=== PATIENT | female | born 1995 | race Two or more races ===

== ENCOUNTER 2018-01-09 20:34 | Emergency (ER) | payer MEDICAID ==
[~2018-01-09] VITALS: Ht 160 cm; Wt 49.9 kg
[2018-01-09 20:50] VITALS: BP 153/94
[2018-01-09] MEDS ORDERED: IBUPROFEN600 MG ORAL (21:06)
[2018-01-09] MEDS ORDERED: PREDNISONE20 MG ORAL (21:06)
[2018-01-09] MEDS ORDERED: PSEUDOEPHEDRINE60 MG PO (21:06)
[2018-01-09] MEDS ORDERED: ALBUTEROL SULF8.5 GM INH (21:06)
--- NOTE | 2018-01-09 21:07 | Emergency Room Report ---
History of Present Illness General Chief Complaint: Sore Throat Source: Patient Present Illness HPI This is a 22-year-old female with history of asthma. She presents with chief complaint of cough, sore throat, hoarseness of her voice. His been ongoing for 2 days. Fever initially. None now. Cough is nonproductive in nature. Worse with lying flat. Worse with inspiration. No nausea no vomiting. Dizzy with coughing. Her inhaler is not helping. She is almost out. No recent steroid use. No recent admission Allergies: Coded Allergies: HYDROMORPHONE (Verified Allergy, Unknown, 01/09/18) MORPHINE (Verified Allergy, Unknown, 01/09/18) Patient History Past Medical History: see triage record, old chart reviewed, asthma Past Surgical History: none Pertinent Family History: none Social History: Denies: smoking Last Menstrual Period: right now Now: No Immunizations: other Reviewed Nursing Documentation: PMH: Agreed; PSxH: Agreed Nursing Documentation-PMH Hx Asthma: Yes Review of Systems Constitutional: Reports: fever Eye: Denies: eye pain, blurred vision ENT: Reports: ear pain, nose congestion, throat pain Respiratory: Reports: cough, shortness of breath Cardiovascular: Denies: chest pain, palpitations Gastrointestinal: Denies: abdominal pain, diarrhea, nausea, vomiting Musculoskeletal: Denies: back pain, joint pain Skin: Denies: rash Neurological: Denies: headache, numbness Endocrine: Denies: increased thirst, increased urine Hematologic/Lymphatic: Denies: easy bruising All Other Systems: negative except mentioned in HPI Physical Exam Vital Signs Date Time Temp Pulse Resp B/P (MAP) Pulse Ox O2 Delivery O2 Flow Rate FiO2 01/09/18 20:40 98.9 116 20 153/94 98 Room Air 99.0 vitals with tachycardia Sp02 EP Interpretation: reviewed, normal General Appearance: well appearing, no apparent distress, alert Head: normocephalic, atraumatic Eyes: bilateral eye PERRL, bilateral eye EOMI ENT: hearing grossly normal, pharyngeal erythema, other - Left ear with fluid behind TM Neck: full range of motion, supple, no meningismus Respiratory: chest non-tender, lungs clear, normal breath sounds, other - Bronchospasm with inspiration Cardiovascular #1: regular rate, rhythm, no murmur Gastrointestinal: normal bowel sounds, non tender, no mass, no organomegaly, no bruit, non-distended Musculoskeletal: back normal, gait/station normal, normal range of motion Psychiatric: mood/affect normal Skin: warm/dry Medical Decision Making Diagnostic Impression: Primary Impression: Pharyngitis with viral syndrome ER Course Patient with a viral illness. No evidence of meningitis, sepsis, pneumonia or other serious bacterial infection. We'll discharge home. Last Vital Signs Date Time Temp Pulse Resp B/P (MAP) Pulse Ox O2 Delivery O2 Flow Rate FiO2 01/09/18 20:50 99.0 20 153/94 98 Room Air 99.0 01/09/18 20:40 116 Status: improved Disposition: HOME, SELF-CARE Condition: Stable Scripts Pseudoephedrine Hcl* (SUDAFED*) 60 Mg Tablet 60 MG PO Q6H, #20 TAB Prov: TULIO GHOSH M.D. 01/09/18 Prednisone* (PREDNISONE*) 20 Mg Tablet 60 MG ORAL DAILY, #12 TAB Prov: TULIO GHOSH M.D. 01/09/18 Ibuprofen* (MOTRIN*) 600 Mg Tablet 600 MG ORAL Q8H PRN for For Pain, #30 TAB 0 Refills Prov: TULIO GHOSH M.D. 01/09/18 Albuterol Sulfate* (ALBUTEROL SULFATE MDI*) 8.5 Gm Hfa.aer.ad 2 PUFF INH Q4H PRN for cough/wheezing, #1 EA 0 Refills Prov: TULIO GHOSH M.D. 01/09/18 Patient Instructions: Laryngitis Additional Instructions: Follow-up with your doctor in 7 days. Increase fluids. Salt water gargle. Return it worse. TULIO GHOSH M.D. Jan 09, 2018 21:07
[2018-01-09] MEDS ORDERED: Albuterol/Ipratropium 3ml neb HHN ONE (21:15)
[2018-01-09 21:35] VITALS: BP 153/94
== END 2018-01-09 21:35 | disposition home or self-care (01) ==
LOC: EMR 21:05
DX: J02.8 Acute pharyngitis due to other specified organisms (principal); B97.89 Other viral agents as the cause of diseases classified elsewhere; J45.909 Unspecified asthma, uncomplicated
CPT/HCPCS: 94640; 94664; 99284; J7512; J7620